=== PATIENT | female | born 1965 | race Caucasian/White ===

== ENCOUNTER 2019-12-13 13:59 | Emergency (ER) | payer BC ==
[~2019-12-13] VITALS: Ht 154.9 cm; Wt 63.6 kg
[2019-12-13 14:09] VITALS: Ht 154.9 cm; Wt 63.6 kg
[2019-12-13 14:50] LABS: BASOPHIL % 0.2 % (0-2); PLATELET COUNT 376 x10^3mcL (130-400); RED CELL DISTRIBUTION WIDTH 12.7 % (11.5-14.5)
[2019-12-13 14:59] LABS: CALCIUM 8.7 mg/dL (8.5-10.1); CARBON DIOXIDE 25.7 mmol/L (21-32); CHLORIDE SERUM 100 mmol/L (98-107); CREATININE SERUM 0.8 mg/dL (0.6-1.0); GFR1 > 60 mL/min; GLUCOSE SERUM 127 mg/dL (74-106); POTASSIUM SERUM 3.2 mmol/L (3.5-5.1); SODIUM SERUM 139 mmol/L (136-145)
[2019-12-13 15:02] LABS: ALBUMIN 3.9 g/dL (3.4-5.0); ALKALINE PHOSPHATASE 63 U/L (46-116); ALT/SGPT 17 U/L (14-59); AST/SGOT 23 U/L (15-37); BILIRUBIN TOTAL 0.3 mg/dL (0.20-1.00); HDL CHOLESTEROL 57 mg/dL (40-60); LIPASE 67 IU/L (73-393); TRIGLYCERIDES 91 mg/dL (<150)
[2019-12-13 15:03] LABS: CHOLESTEROL 235 mg/dL (<200); CHOLESTEROL/HDL RATIO 4.1; TOTAL PROTEIN, SERUM 8.5 g/dL (6.4-8.2)
[2019-12-13 16:46] LABS: UA SPECIFIC GRAVITY >=1.030 (1.005-1.035); microscopic required? YES; urine erythrocyte 2+ (NEGATIVE)
[2019-12-13 17:44] VITALS: BP 143/80
== END 2019-12-13 17:44 | disposition home or self-care (01) ==
LOC: ED 13:59
PROVIDERS: Specialist
DX: R10.813 Right lower quadrant abdominal tenderness (principal); R31.29 Other microscopic hematuria; I10 Essential (primary) hypertension; R11.10 Vomiting, unspecified; Z98.890 Other specified postprocedural states
CPT/HCPCS: J1885